=== PATIENT | female | born 1980 | race Caucasian/White ===

== ENCOUNTER 2017-11-21 09:15 | Emergency (ER) | payer OTHER ==
--- NOTE | 2017-11-21 09:50 | EDM.PDOC ---
ED HPI GENERAL MEDICAL PROBLEM - General Chief Complaint: PURCHASING CLERK Problem Stated Complaint: MISCARRIAGE Time Seen by Provider: 11/21/17 09:40 Source of Information: Reports: Patient, Family, RN Notes Reviewed History Limitations: Reports: No Limitations - History of Present Illness INITIAL COMMENTS - FREE TEXT/NARRATIVE: 37-year-old female presents to the emergency department with a complaint of vaginal bleeding, she estimates she is between 4 and 5 weeks she did have a positive test 2 last week however over the last couple days she's developed vaginal bleeding she is only went to 1 pad in a 24-hour period. She is 3 para 2 initial pregnancies no complications no issues, she does feel nauseated has had some cramping, currently breast-feeding vaginal. Is anywhere from 22-33 days Pelvic Pain Score (Numeric/FACES): 3 - Related Data Allergies Allergy/AdvReac Type Severity Reaction Status Date / Time amoxicillin Allergy Hives Verified 11/21/17 09:32 vancomycin Allergy Hives Verified 11/21/17 09:32 Home Meds: Home Meds PNV95/Ferrous Fumarate/FA [ Tablet] 1 each PO DAILY 11/21/17 [History] Past Medical History Other OB/BYN History: LEEP Neurological History: Reports: Migraines - Past Surgical History Female Surgical History: Reports: Section Social & Family History - Tobacco Use Smoking Status *Q: Unknown Ever Smoked ED ROS GENERAL - Review of Systems Review Of Systems: See Below Constitutional: Reports: No Symptoms Respiratory: Reports: No Symptoms Cardiovascular: Reports: No Symptoms GI/Abdominal: Reports: Abdominal Pain (Cramping abdominal discomfort) : Reports: Irregular Menses ED EXAM - Physical Exam Exam: See Below Exam Limited By: No Limitations General Appearance: Alert, WD/WN, No Apparent Distress GI/Abdominal Exam: Soft, Non-Tender Course - Vital Signs Last Recorded V/S: Last Vital Signs Temp 97.5 F 11/21/17 09:30 Pulse 81 11/21/17 09:30 Resp 14 11/21/17 09:30 BP 145/87 H 11/21/17 09:30 Pulse Ox 100 11/21/17 09:30 - Orders/Labs/Meds Labs: Laboratory Tests 11/21/17 11/21/17 Range/Units 09:59 09:59 Hgb 13.4 (12.0-15.0) g/dL HCG, Quant 3 (0-6) mIU/mL Departure - Departure Time of Disposition: 10:36 Disposition: Home, Self-Care 01 Condition: Good Clinical Impression: Vaginal bleeding - Discharge Information Referrals: PCP,None [Primary Care Provider] - Forms: ED Department Discharge Additional Instructions: Please follow-up with your PURCHASING CLERK tomorrow, call return to the emergency department worsening of symptoms - Assessment/Plan Plan: Assessment Acuity = acute Site and laterality = vaginal bleeding with positive test at home Etiology = probable spontaneous miscarriage Manifestations = none Location of injury = Home Lab values = hemoglobin 13.9, quantitative beta-hCG is at 3 consistent with negative Plan I did review lab work with her elected not to proceed with a pelvic exam today she is to follow-up with her PURCHASING CLERK upon return home tomorrow This note was dictated using [email or web address] voice recognition software please call with any questions on syntax or grammar.
== END 2017-11-21 10:55 | disposition home or self-care (01) ==
LOC: JP.ED 09:15
DX: O09.91 Supervision of high risk pregnancy, unspecified, first trimester (principal); O20.9 Hemorrhage in early pregnancy, unspecified; Z3A.01 Less than 8 weeks gestation of pregnancy; Z88.1 Allergy status to other antibiotic agents
CPT/HCPCS: 36415; 84702; 85018; 99284